=== PATIENT | female | born 1995 | race Caucasian/White ===

== ENCOUNTER 2016-12-26 01:02 | Inpatient (IN) | payer OTHER ==
[~2016-12-26] VITALS: Ht 167.6 cm; Wt 85.7 kg
[2016-12-26] VITALS (24 sets, daily range): BP systolic 93–126; BP diastolic 59–86; PULSE 70–119; RESP 18–20; TEMP 98.4–98.7
[~2016-12-26 01:02] MED LIST: SELEPAK PO
[2016-12-26] MEDS ORDERED: LACTATED RINGER'S 1000 ML INJ 1,000 ML IV SCH (01:48)
[2016-12-26] MEDS ORDERED: LACTATED RINGER'S 1000 ML INJ 1,000 ML IV PRN (01:48)
--- NOTE | 2016-12-26 01:48 | PD ---
HPI Chief Complaint contractions Date Seen: December 26, 2016 Travel History International Travel<30 Days: No Contact w/Intl Traveler<30Days: No Known Affected Area: No History of Present Illness HPI This is a 21y/o at 40w who presents to the [facility] with reports of contractions since 10:30p. She denies vaginal bleeding or leakage of fluid and is requesting an epidural. care at [facility], care complicated by: 1. young multigravida Para: 1 : 2 History Past Medical History Medical History: Denies Significant Hx Obstetric History Obstetric History 08/29/2013 40w NSVE [id number] Male Past Surgical History Surgical History: No Previous Surgery Family History Family History: Negative Social History Alcohol Use: No Tobacco Use: No Substance Abuse: No Allergies-Medications (Allergen,Severity, Reaction): Coded Allergies: No Known Allergies (Unverified , 12/24/16) Home Meds Active Scripts Mv & Min W/Fe Polysac (Select-Ob+Dha 29-1 & 250 mg)1 King Pak1 Tab PO DAILY #30 BOTTLE Ref 11 Prov:Marge Lagos [facility] 07/14/16 Review of Systems Except as stated in HPI: all other systems reviewed are Neg Physical Exam Narrative GENERAL: Well-nourished, well-developed patient. SKIN: Warm and dry. HEAD: Normocephalic and atraumatic. EYES: No scleral icterus. No injection or drainage. ENT: No nasal drainage noted. Mucous membranes pink. Airway patent. NECK: Supple, trachea midline. No JVD. CARDIOVASCULAR: Regular rate and rhythm without murmurs, gallops, or rubs. RESPIRATORY: Breath sounds equal bilaterally. No accessory muscle use. BREASTS: Bilateral exam showed no masses , no retractions, no nipple discharge. ABDOMEN/GI: Abdomen soft, non-tender, bowel sounds present, no rebound, no guarding Gravid to 40 weeks size GENITOURINARY: External Genitalia: intact and normal in appearance Cervix: 7/90/-1 Membranes: intact Uterine Contractions: q 4-5 minutes apart FHT's: EXTREMITIES: No cyanosis or edema. BACK: Nontender without obvious deformity. No CVA tenderness. NEUROLOGICAL: Awake and alert. Motor and sensory grossly within normal limits. Five out of 5 muscle strength in all muscle groups. Normal speech. Data Data Vital Signs Reviewed: Yes Orders Ob (2e) Additional Admit Info (12/26/16 01:40) MDM Medical Record Reviewed: Yes Interpretation(s) 21y/o at 40w in active labor. -GBS neg -reassuring status Plan -admit for delivery -anticipate -epidural when desired Diagnosis Diagnosis: Primary Impression: Abdominal pain during in third trimester Clara Hayward MD December 26, 2016 01:48
--- NOTE | 2016-12-26 01:52 | HHI.HP ---
HPI Chief Complaint Contractions Travel History International Travel<30 Days: No Contact w/Intl Traveler<30Days: No Known Affected Area: No History of Present Illness HPI This is a 21y/o at 40w who presents to the [facility] with reports of contractions since 10:30p. She denies vaginal bleeding or leakage of fluid and is requesting an epidural. care at [facility], care complicated by: 1. young multigravida Para: 1 : 2 History Past Medical History Medical History: Denies Significant Hx Past Surgical History Surgical History: No Previous Surgery Family History Family History: Negative Social History Alcohol Use: No Tobacco Use: No Substance Abuse: No Allergies-Medications (Allergen,Severity, Reaction): Coded Allergies: No Known Allergies (Unverified , 12/24/16) Home Meds Active Scripts Mv & Min W/Fe Polysac (Select-Ob+Dha 29-1 & 250 mg)1 King Pak1 Tab PO DAILY #30 BOTTLE Ref 11 Prov:Marge Lagos 07/14/16 Review of Systems Except as stated in HPI: all other systems reviewed are Neg Physical Exam Narrative GENERAL: Well-nourished, well-developed patient. SKIN: Warm and dry. HEAD: Normocephalic and atraumatic. EYES: No scleral icterus. No injection or drainage. ENT: No nasal drainage noted. Mucous membranes pink. Airway patent. NECK: Supple, trachea midline. No JVD. CARDIOVASCULAR: Regular rate and rhythm without murmurs, gallops, or rubs. RESPIRATORY: Breath sounds equal bilaterally. No accessory muscle use. BREASTS: Bilateral exam showed no masses , no retractions, no nipple discharge. ABDOMEN/GI: Abdomen soft, non-tender, bowel sounds present, no rebound, no guarding Gravid to 40 weeks size GENITOURINARY: External Genitalia: intact and normal in appearance Cervix: 7/90/-1 Membranes: intact Uterine Contractions: q 4-5 minutes apart FHT's: EXTREMITIES: No cyanosis or edema. BACK: Nontender without obvious deformity. No CVA tenderness. NEUROLOGICAL: Awake and alert. Motor and sensory grossly within normal limits. Five out of 5 muscle strength in all muscle groups. Normal speech. Data Data Vital Signs Reviewed: Yes Orders Ob (2e) Additional Admit Info (12/26/16 01:40) Admit To Inpatient (5/27/17 ) Code Status (12/26/16 01:48) Vital Signs (Adult) .Per protocol (12/26/16 01:48) Heart (12/26/16 01:48) Amnioinfusion (12/26/16 01:48) Urinary Catheter Management .ONCE (12/26/16 01:48) Diet Liquid (12/26/16 Breakfast) Lactated Ringer's 1000 Ml Inj (Lr 1000 M (12/26/16 01:48) Lactated Ringer's 1000 Ml Inj (Lr 1000 M (12/26/16 01:48) Sodium Chlorid 0.9% 500 Ml Inj (Ns 500 M (12/26/16 02:00) Sodium Chlor 0.9% 1000 Ml Inj (Ns 1000 M (12/26/16 02:08) Lidocaine 1% Inj (50 Ml) (Xylocaine 1% I (12/26/16 02:00) Citric Acid-Sodium Citrate Liq (Bicitra (12/26/16 02:00) Fentanyl Inj (Fentanyl Inj) (12/26/16 02:00) Fentanyl Inj (Fentanyl Inj) (12/26/16 02:00) Complete Blood Count With Diff (12/26/16 01:48) Hold Clot (12/26/16 01:48) Abo/Rh Blood Type (12/26/16 01:48) Urinalysis - C+S If Indicated (12/26/16 01:48) Resp Oxygen Non Rebreathe Mask (12/26/16 ) ^ Epidural / Intrathecal Infus (12/26/16 01:48) Oxytocin 30 Units-500ml Premix (Pitocin (12/26/16 02:00) Lidocaine 1% Inj (50 Ml) (Xylocaine 1% I (12/26/16 02:00) Light Mineral Oil (Muri-Lube Oil) (12/26/16 02:00) Inpatient Certification (12/26/16 ) Specimen To Be Collected PRN (12/26/16 01:48) Assessment/Plan Problem List: (1) Abdominal pain during in third trimester Assessment and Plan 21y/o at 40w in active labor. -GBS neg -reassuring status Plan -admit for delivery -anticipate -epidural when desired Clara Hayward MD December 26, 2016 01:52
[2016-12-26] MEDS ORDERED: LIDOCAINE HCL 1% 50 ML VIAL INFIL PRN (02:00)
[2016-12-26] MEDS ORDERED: OXYTOCIN 30 UNITS-500ML PREMIX 500 ML IV ONE (02:00)
[2016-12-26] MEDS ORDERED: MINERAL OIL 10 ML VIAL TOPICAL PRN (02:00)
[2016-12-26] MEDS ORDERED: LIDOCAINE HCL 1% 50 ML VIAL I-DERMAL PRN (02:00)
[2016-12-26] MEDS ORDERED: CITRIC ACID-SODIUM CITRATE LIQ 30 ML UDC PO SCH (02:00)
[2016-12-26] MEDS ORDERED: SODIUM CHLORID 0.9% 500 ML INJ 500 ML IV PRN (02:00)
[2016-12-26 02:04] LABS: AUTOMATED NEUTROPHIL # 10.5 TH/MM3 (1.8-7.7); BASOPHIL # 0.1 TH/MM3 (0-0.2); BASOPHIL % 0.5 % (0.0-2.0); EOSINOPHIL # 0.1 TH/MM3 (0-0.4); EOSINOPHIL % 0.5 % (0.0-4.0); HEMATOCRIT 35.2 % (35.0-46.0); HEMO FLAGS DIFF FINAL; LYMPH % 14.7 % (9.0-44.0); MEAN CELL VOLUME 81.6 FL (80.0-100.0); MEAN CORPUSCULAR HEMOGLOBIN 27.3 PG (27.0-34.0); MEAN CORPUSCULAR HGB CONC 33.5 % (32.0-36.0); MONO % 8.7 % (0.0-8.0); NEUT % 75.6 % (16.0-70.0); PLATELET COUNT 252 TH/MM3 (150-450); RED BLOOD COUNT 4.31 MIL/MM3 (4.00-5.30); RED CELL DISTRIBUTION WIDTH 13.7 % (11.6-17.2); WHITE BLOOD COUNT 13.9 TH/MM3 (4.0-11.0)
[2016-12-26 02:05] LABS: BLOOD, URINE NEG (NEG); COMMENT (UR) CULT NOT INDICATED; CULTURE IF INDICATED CULT NOT INDICATED; GLUCOSE,URINE NEG (NEG); KETONE, URINE NEG (NEG); MUCUS URINE FEW /lpf (OCC); NITRITE,URINE NEG (NEG); PH, URINE 5.5 (5.0-8.5); SQUAMOUS EPITHELIAL CELL URINE <1 /hpf (0-5); URINE COLOR YELLOW (YELLW/STRAW)
[2016-12-26] MEDS ORDERED: fentaNYL 2MCG-BUPIV 0.125% INJ 100 ML ONE (02:06)
[2016-12-26] MEDS ORDERED: SODIUM CHLOR 0.9% 1000 ML INJ 1,000 ML IV PRN (02:08)
--- NOTE | 2016-12-26 05:25 | PD.OB.DELI ---
Anesthesia: Epidural Episiotomy: None Vaginal Delivery: Normal Presentation: Occiput anterior, Compound (Right hand) Nuchal Cord: None Delayed cord clamping (45 sec): Yes Infant: Female One Minute : 9 Five Minute : 9 Weight: 3630 Placenta: Spontaneous delivery Laceration: Vaginal laceration, 2 deg Repair: Chromic running Additional Information This is a 21y/o at 40w who was admitted in active labor. She received an epidural and progressed spontaneously in labor. She pushed very effectively and the head was delivered atraumatically. The body was delivered atraumatically and a vigorous Female infant was delivered. The was placed on the maternal abdomen. The cord was clamped and cut after it stopped pulsating. . The vagina was examined and a 2nd degree vaginal, right periureteral and left labial lacerations were noted which were repaired with 2-0 /3-0 chromic. The placenta was delivered spontaneously and noted to be intact. The lacerations were noted to be hemostatic. Bleeding was minimal. All sponge/lap/instruments were accounted for. Clara Hayward MD December 26, 2016 05:24
[2016-12-26] MEDS ORDERED: oxyCODONE/ACETAMINOPHEN 5 MG/325 MG TAB PO PRN (05:30)
[2016-12-26] MEDS ORDERED: ACETAMINOPHEN 325 MG TAB PO PRN (05:30)
[2016-12-26] MEDS ORDERED: WITCH HAZEL 50%/GLYCERIN 12.5% 40 PAD JAR TOPICAL PRN (05:30)
[2016-12-26] MEDS ORDERED: ZOLPIDEM TARTRATE 5 MG TAB PO PRN (05:30)
[2016-12-26] MEDS ORDERED: BENZOCAINE 20% TOPICAL SPRAY 60 ML CAN TOPICAL PRN (05:30)
[2016-12-26] MEDS ORDERED: ONDANSETRON ODT 4 MG TAB PO PRN (05:30)
[2016-12-26] MEDS ORDERED: ALUMINUM/MAGNESIUM/SIMETH 30 ML CUP PO PRN (05:30)
[2016-12-26] MEDS ORDERED: DOCUSATE SODIUM 50 MG/SENNA 8.6 MG TAB PO PRN (05:30)
[2016-12-26] MEDS ORDERED: fentaNYL 2MCG-BUPIV 0.125% 100 ML EPIDURAL SCH (06:15)
[2016-12-26] MEDS ORDERED: DO NOT ADMINISTER ANTICOAGULANTS PRN (06:15)
[2016-12-26] MEDS ORDERED: ePHEDrine/NS 25 MG/5 ML SYR IV PRN (06:15)
[2016-12-26] MEDS ORDERED: NO SYSTEM NARCOTICS PRN (06:15)
[2016-12-26] MEDS: IBUPROFEN 600 MG TAB PO PRN ×3 (07:47→21:39)
--- NOTE | 2016-12-26 09:39 | HHI.OB ---
Subjective Remarks 21 year old PPD 0 after vaginal delivery this morning. No complaints currently. Pain well controlled. Plans on . Wants progesterone only pills for control. Will follow with [facility]. (Александр Licona MD R2) Objective Vitals/I&O Vital Signs Date Time Temp Pulse Resp B/P Pulse Ox O2 Delivery O2 Flow Rate FiO2 12/26/16 06:27 18 12/26/16 06:00 18 12/26/16 05:45 70 108/61 12/26/16 05:45 20 12/26/16 05:31 93/79 12/26/16 05:31 75 12/26/16 05:30 20 12/26/16 05:15 98.4 12/26/16 05:15 81 119/82 12/26/16 05:15 18 12/26/16 05:12 88 110/59 12/26/16 05:01 86 12/26/16 05:01 118/71 12/26/16 04:30 103/86 12/26/16 04:15 98.7 90 95/73 12/26/16 04:06 18 12/26/16 04:05 90 102/66 12/26/16 03:48 81 12/26/16 03:48 109/62 12/26/16 03:30 77 107/63 12/26/16 03:25 18 12/26/16 03:15 81 99/62 12/26/16 03:00 82 111/70 12/26/16 02:57 18 12/26/16 02:55 80 117/71 12/26/16 02:52 113/70 12/26/16 02:51 119 12/26/16 02:35 78 12/26/16 02:32 126/66 12/26/16 02:10 20 Objective Remarks GENERAL: Well-nourished, well-developed patient. CARDIOVASCULAR: Regular rate and rhythm without murmurs, gallops, or rubs. RESPIRATORY: Breath sounds equal bilaterally. No accessory muscle use. ABDOMEN/GI: Abdomen soft, non-tender. Fundus: Firm, non-tender at umbilicus. GENITOURINARY: Light to moderate bleeding. EXTREMITIES: No cyanosis or edema, non-tender, without signs of DVT. Medications and IVs Current Medications Medications (Trade) Dose Ordered Sig/Abiodun Route Start Time Stop Time Status Last Admin Lactated Ringer's 1,000 ml @ 125 mls/hr Q8H IV 12/26/16 01:48 Lactated Ringer's 1,000 ml @ 3,000 mls/hr Q20M PRN IV 12/26/16 01:48 Sodium Chloride 500 ml @ 1,000 mls/hr ONCE PRN IV 12/26/16 02:00 12/27/16 01:59 (NS 1000 ml Inj) 1,000 ml @ 100 mls/hr Q10H PRN IV 12/26/16 02:08 (fentaNYL INJ) 50 mcg Q1H PRN IV PUSH 12/26/16 02:00 (fentaNYL INJ) 100 mcg Q1H PRN IV PUSH 12/26/16 02:00 (Muri-Lube Oil) 10 ml UNSCH PRN TOPICAL 12/26/16 02:00 (Tylenol) 650 mg Q4H PRN PO 12/26/16 05:30 (Motrin) 600 mg Q6H PRN PO 12/26/16 05:30 12/26/16 07:47 (Percocet 5-325 Mg) 2 tab Q4H PRN PO 12/26/16 05:30 (Americaine 20% Top Spr) 1 spray Q4H PRN TOPICAL 12/26/16 05:30 12/26/16 07:47 (Tucks Pads) 1 applic QID PRN TOPICAL 12/26/16 05:30 12/26/16 07:47 (Keyana-Colace) 2 tab Q12H PRN PO 12/26/16 05:30 12/26/16 07:46 (Ambien) 5 mg HS PRN PO 12/26/16 05:30 (M-M-R Ii Inj) 0.5 ml ONCE ONCE SQ 12/26/16 16:00 12/26/16 16:01 (Boostrix Inj) 0.5 ml ONCE ONCE IM 12/26/16 16:00 12/26/16 16:01 (Mag-Al Plus Susp Liq) 15 ml Q8H PRN PO 12/26/16 05:30 (Zofran Odt) 4 mg Q6H PRN PO 12/26/16 05:30 Miscellaneous Information No systemic narcotics to be given except... UNSCH PRN .XX 12/26/16 06:15 12/27/16 06:14 Miscellaneous Information DO NOT ADMINISTER ANY ANTICOAGUL... UNSCH PRN .XX 12/26/16 06:15 12/27/16 06:14 (fentaNYL 2MCG-BUPIV 0.125% INJ) 100 ml @ 0 mls/hr TITRATE EPIDURAL 12/26/16 06:15 (ePHEDrine/NS 25 MG/5 ML SYR) 10 mg UNSCH PRN IV 12/26/16 06:15 12/27/16 06:14 (Александр Licona MD R2) Assessment/Plan Assessment and Plan 21 y/o PPD 0 after vaginal delivery - Motrin PRN for pain control - Encourage ambulation - Monitor lochia - Encourage exclusively - Will follow with [facility] after discharge Discussed with Dr. Hayward (Александр Licona MD R2) Attending Attestation Pt seen and evaluated, agree with above. (Clara Hayward MD) Александр Licona MD R2 December 26, 2016 09:39 Clara Hayward MD December 26, 2016 10:05
[2016-12-26] MEDS ORDERED: DIPHTH/TETANUS/ACEL PERTUSSIS (BOOSTER) 0.5 ML VIAL/PFS IM ONE (16:00)
[2016-12-26] MEDS ORDERED: MEASLES, MUMPS, RUBELLA VACCINE 0.5 ML VIAL SQ ONE (16:00)
--- NOTE | 2016-12-27 06:59 | HHI.OB ---
Subjective Post Day: 1 Remarks 21 year old PPD 1 after vaginal delivery. No complaints currently. Pain well controlled. Is not . Wants progesterone only pills for control. Will follow with [facility]. (Alexandria Chapa MD R1) Remarks Patient seen and evaluated with resident under direct supervision, agree with assessment and plan. (Deng Aguilera MD) Objective Vitals/I&O Reviewed and wnl over last 24hr Objective Remarks GENERAL: Well-nourished, well-developed female. CARDIOVASCULAR: Regular rate and rhythm without murmurs, gallops, or rubs. RESPIRATORY: Breath sounds equal bilaterally. No accessory muscle use. ABDOMEN/GI: Abdomen soft, non-tender. Fundus: Firm, non-tender at umbilicus. GENITOURINARY: Light to moderate bleeding. EXTREMITIES: No cyanosis or edema, non-tender, without signs of DVT. Medications and IVs Current Medications Medications (Trade) Dose Ordered Sig/Abiodun Route Start Time Stop Time Status Last Admin Lactated Ringer's 1,000 ml @ 125 mls/hr Q8H IV 12/26/16 01:48 Lactated Ringer's 1,000 ml @ 3,000 mls/hr Q20M PRN IV 12/26/16 01:48 (NS 1000 ml Inj) 1,000 ml @ 100 mls/hr Q10H PRN IV 12/26/16 02:08 (fentaNYL INJ) 50 mcg Q1H PRN IV PUSH 12/26/16 02:00 (fentaNYL INJ) 100 mcg Q1H PRN IV PUSH 12/26/16 02:00 (Muri-Lube Oil) 10 ml UNSCH PRN TOPICAL 12/26/16 02:00 (Tylenol) 650 mg Q4H PRN PO 12/26/16 05:30 (Motrin) 600 mg Q6H PRN PO 12/26/16 05:30 12/26/16 21:39 (Percocet 5-325 Mg) 2 tab Q4H PRN PO 12/26/16 05:30 (Americaine 20% Top Spr) 1 spray Q4H PRN TOPICAL 12/26/16 05:30 12/26/16 07:47 (Tucks Pads) 1 applic QID PRN TOPICAL 12/26/16 05:30 12/26/16 07:47 (Keyana-Colace) 2 tab Q12H PRN PO 12/26/16 05:30 12/26/16 07:46 (Ambien) 5 mg HS PRN PO 12/26/16 05:30 (Mag-Al Plus Susp Liq) 15 ml Q8H PRN PO 12/26/16 05:30 Ondansetron HCl 4 mg 4 mg Q6H PRN PO 12/26/16 05:30 (fentaNYL 2MCG-BUPIV 0.125% INJ) 100 ml @ 0 mls/hr TITRATE EPIDURAL 12/26/16 06:15 (Alexandria Chapa MD R1) Assessment/Plan Problem List: (1) Abdominal pain during in third trimester Assessment and Plan 21 y/o PPD s after vaginal delivery - Motrin PRN for pain control - Encourage ambulation - Monitor lochia - Encourage exclusively - Will follow with [facility] after discharge - Expect discharge to home today if baby is discharged Discussed with Dr. Aguilera (Alexandria Chapa MD R1) Alexandria Chapa MD R1 December 27, 2016 06:59 Deng Aguilera MD December 27, 2016 09:39
[2016-12-27] MEDS ORDERED: IBUP-232 PO (07:00)
--- NOTE | 2016-12-27 07:01 | HHI.DCPOC ---
Discharge Care Plan Diagnosis: (1) Normal vaginal delivery Report Symptoms to Your Doctor -Temperate above 100.5 degrees -Redness, of incision or excessive or foul smelling drainage -Unusual pain or calf pain -Increased vaginal bleeding -Painful or difficulty urinating -Feelings of extreme sadness or anxiety after 2 weeks Goals to Promote Your Health * To prevent worsening of your condition and complications * To maintain your health at the optimal level Directions to Meet Your Goals Take your medications as prescribed Follow your dietary instruction Follow activity as directed Ensure plenty of rest for recovery Drink fluids for hydration Keep your appointments as scheduled Take your immunizations and boosters as scheduled If your symptoms worsen call your PCP, if no PCP go to Urgent Care Center or Emergency Room Smoking is Dangerous to Your Health. Avoid second hand smoke Call the 24-hour crisis hotline for domestic abuse at Alexandria Chapa MD R1 December 27, 2016 07:01 Deng Aguilera MD December 27, 2016 09:39
[2016-12-27] MEDS: IBUPROFEN 600 MG TAB PO PRN (09:57)
== END 2016-12-27 14:36 | disposition home or self-care (01) | DRG 775 ==
LOC: HOBED 01:02 → H2EA 01:40 → H1EA 07:29
PROVIDERS: ADMIT Obstetrics & Gynecology; ATTEND Obstetrics & Gynecology
PROC: 10E0XZZ Delivery of Products of Conception, External Approach (ICD-10-PCS; principal; 2016-12-26)
PROC: 0KQM0ZZ Repair Perineum Muscle, Open Approach (ICD-10-PCS; 2016-12-26)
PROC: 0UQMXZZ Repair Vulva, External Approach (ICD-10-PCS; 2016-12-26)
DX: O71.4 Obstetric high vaginal laceration alone (principal); Z37.0 Single live birth; O71.82 Other specified trauma to perineum and vulva; Z3A.40 40 weeks gestation of pregnancy
CPT/HCPCS: 81001; 85025; 86900; 86901; 90715; 99285